=== PATIENT | female | born 1985 | race Caucasian/White ===

== ENCOUNTER → 2019-08-09 | Outpatient (CLI) | payer MEDICARE, OTHER ==
[~2019-08-09] MED LIST: CHOL10003 PO; CYAN100T2 PO; DIAZ2TAB3 PO; ETON1VAG VG; HYDR-3246 PO; HYDR200T72 PO; OXYC5CAP2 PO
[2019-08-09 15:21] LABS: BASOPHILS # (AUTO) 0.03 x10^3/uL (0-0.1); BASOPHILS % (AUTO) 1 % (0-1); EOSINOPHILS # (AUTO) 0.05 x10^3/uL (0-0.4); EOSINOPHILS % (AUTO) 1 % (1-7); LYMPHOCYTES # (AUTO) 1.48 x10^3/uL (1-3.4); LYMPHOCYTES % (AUTO) 24 % (22-44); MD NO; MEAN CORPUSCULAR HEMOGLOBIN 32.4 pg (27.0-34.8); MEAN CORPUSCULAR HGB CONC 34.2 g/dL (32.4-35.8); MEAN CORPUSCULAR VOLUME 94.6 fL (80-100); MEAN PLATELET VOLUME 9.3 fL (7.4-10.4); MONOCYTES # (AUTO) 0.53 x10^3/uL (0.2-0.8); MONOCYTES % (AUTO) 9 % (2-9); NEUTROPHILS % (AUTO) 66 % (42-75); PLATELET COUNT 235 x10^3/uL (130-400); RED BLOOD COUNT 4.45 x10^6/uL (3.82-5.3); RED CELL DISTRIBUTION WIDTH 11.6 % (9.6-15.2)
[2019-08-09 15:23] LABS: INTERNATIONAL NORMALIZED RATIO 0.96 (0.93-1.1); PROTHROMBIN TIME 10.2 Seconds (9.6-11.5)
[2019-08-09 15:25] LABS: ALANINE AMINOTRANSFERASE 31 U/L (12-78); ALBUMIN 3.9 g/dL (3.4-5.0); ANION GAP 5 mmol/L (5-15); CALCIUM 8.8 mg/dL (8.5-10.1); CHLORIDE 108 mmol/L (98-107); CREATININE 0.63 mg/dL (0.55-1.02)
[2019-08-09 15:28] LABS: ALKALINE PHOSPHATASE 65 U/L (45-117); BILIRUBIN,TOTAL 0.8 mg/dL (0.2-1.0); TOTAL PROTEIN 7.6 g/dL (6.4-8.2)
== END | disposition home or self-care (01) ==
LOC: STAR 13:58
PROVIDERS: ATTEND Orthopaedic Surgery Adult Reconstructive Orthopaedic Surgery
DX: Z01.818 Encounter for other preprocedural examination (principal); M16.11 Unilateral primary osteoarthritis, right hip; R94.31 Abnormal electrocardiogram [ECG] [EKG]; Q65.89 Other specified congenital deformities of hip
CPT/HCPCS: 36415; 80053; 85025; 85610; 85730; 87081; 93005

== ENCOUNTER 2019-08-15 05:58 | Observation (INO) | payer MEDICARE, OTHER ==
[~2019-08-15] VITALS: Ht 167.6 cm; Wt 85.0 kg
[2019-08-15] MEDS ORDERED: LACTATED RINGERS 1,000 ML IV SCH (06:29)
[2019-08-15] MEDS ORDERED: CHLORHEXIDINE 15 ML UDC MM ONE (06:30)
[2019-08-15] MEDS ORDERED: CEFAZOLIN 1,000 MG ONE ×2 (06:47→09:20)
[2019-08-15] MEDS ORDERED: VANCOMYCIN 1,000 MG ONE (06:48)
[2019-08-15] MEDS ORDERED: TRANEXAMIC ACID 100 MG/ML, 10ML ONE (06:48)
[2019-08-15 07:10] LABS: HCG UR SG 1.021 (1.003-1.030)
[2019-08-15] MEDS ORDERED: MIDAZOLAM 1 MG/ML, 2ML ONE (07:26)
[2019-08-15] MEDS ORDERED: GABAPENTIN 300 MG CAPSULE ONE (07:26)
[2019-08-15] MEDS ORDERED: ACETAMINOPHEN 500 MG TABLET ONE (07:26)
[2019-08-15] MEDS ORDERED: FENTANYL PF 250 MCG/5ML ONE ×3 (07:34→09:00)
[2019-08-15] MEDS ORDERED: PROPOFOL 10 MG/ML, 20ML ONE (09:20)
[2019-08-15] MEDS ORDERED: GLYCOPYRROLATE 0.2MG/1ML, 5ML ONE (09:20)
[2019-08-15] MEDS ORDERED: NEOSTIGMINE 1 MG/ML, 10ML ONE (09:20)
[2019-08-15] MEDS ORDERED: DEXAMETHASONE 4 MG/ML, 1ML ONE (09:20)
[2019-08-15] MEDS ORDERED: ONDANSETRON 2MG/ML, 2ML ONE (09:20)
[2019-08-15] MEDS ORDERED: SUCCINYLCHOLINE 20 MG/ML, 10ML ONE (09:20)
[2019-08-15] MEDS ORDERED: ROCURONIUM 10MG/ML,5ML ONE (09:20)
[2019-08-15] MEDS ORDERED: FENTANYL PF 100 MCG/2ML ONE ×2 (09:54→10:09)
[2019-08-15] MEDS ORDERED: OXYcodone 5 MG/5 ML ORAL.SOL UDC ONE (09:54)
[2019-08-15] MEDS: FENTANYL PF 100 MCG/2ML IV PRN ×4 (09:56→10:32)
[2019-08-15] MEDS ORDERED: TRANEXAMIC ACID 1,000 MG in SODIUM CHLORIDE 0.9% 100 ML IVPB ONE (10:00)
[2019-08-15] MEDS ORDERED: MEPERIDINE/PF 25MG/0.5ML IVPush PRN (10:00)
[2019-08-15] MEDS ORDERED: DIPHENHYDRAMINE 25 MG CAPSULE PO PRN (10:00)
[2019-08-15] MEDS ORDERED: LABETALOL 5MG/ML, 20ML IV PRN (10:00)
[2019-08-15] MEDS ORDERED: SENNA/DOCUSATE TABLET PO PRN (10:00)
[2019-08-15] MEDS ORDERED: ALBUTEROL SULFATE 2.5 MG/3 ML NPPB PRN (10:00)
[2019-08-15] MEDS ORDERED: PROMETHAZINE 25 MG/ML, 1ML IV PRN (10:00)
[2019-08-15] MEDS ORDERED: OXYcodone IR 5MG TABLET PO PRN (10:00)
[2019-08-15] MEDS ORDERED: ONDANSETRON 4 MG TABLET PO PRN (10:00)
[2019-08-15] MEDS ORDERED: OXYcodone 5 MG/5 ML ORAL.SOL UDC PO PRN (10:00)
[2019-08-15] MEDS ORDERED: hydrALAzine 20 MG/ML, 1ML IV PRN (10:00)
[2019-08-15] MEDS ORDERED: DIAZEPAM 5 MG/ML, 2ML IVPush PRN (10:00)
[2019-08-15] MEDS ORDERED: MEPERIDINE/PF 25MG/ML,1ML ONE (10:17)
[2019-08-15] MEDS ORDERED: HYDROmorphone 1 MG/ML, 1ML INJ ONE ×3 (10:36→11:44)
[2019-08-15] MEDS: HYDROmorphone 1 MG/ML, 1ML INJ IVPush PRN ×8 (10:40→21:27)
[2019-08-15] MEDS ORDERED: DIAZEPAM 5 MG/ML, 2ML ONE (10:57)
[2019-08-15 13:13] VITALS: BP 125/71
[2019-08-15] MEDS: PREGABALIN 75 MG CAPSULE PO SCH ×2 (13:19→19:59)
[2019-08-15] MEDS: ACETAMINOPHEN 500 MG TABLET PO SCH ×2 (13:19→18:32)
[2019-08-15] MEDS: OXYcodone IR 5MG TABLET PO PRN ×3 (14:23→22:59)
[2019-08-15] MEDS: CEFAZOLIN PMX 2GM/50ML 50 ML IVPB SCH (16:12)
[2019-08-15 19:40] VITALS: BP 109/80
[2019-08-15] MEDS ORDERED: DIAZEPAM 2 MG TABLET PO PRN (20:00)
[2019-08-15] MEDS: LACTATED RINGERS 1,000 ML IV SCH (21:00)
[2019-08-16 00:37] VITALS: BP 118/73
[2019-08-16] MEDS: ACETAMINOPHEN 500 MG TABLET PO SCH ×3 (01:39→08:38)
[2019-08-16] MEDS: CEFAZOLIN PMX 2GM/50ML 50 ML IVPB SCH (01:40)
[2019-08-16] MEDS: HYDROmorphone 1 MG/ML, 1ML INJ IVPush PRN (01:40)
[2019-08-16 03:54] VITALS: BP 118/72
[2019-08-16] MEDS: OXYcodone IR 5MG TABLET PO PRN ×3 (04:15→12:49)
[2019-08-16] MEDS ORDERED: ASPIRIN 81 MG TABLET EC PO SCH (06:00)
[2019-08-16] MEDS ORDERED: DEXAMETHASONE 4 MG/ML, 1ML IVPush ONE (06:00)
[2019-08-16] MEDS ORDERED: ASPI81TA45 PO (06:33)
[2019-08-16 07:37] VITALS: BP_SYST 127
[2019-08-16] MEDS: PREGABALIN 75 MG CAPSULE PO SCH (08:38)
[2019-08-16] MEDS ORDERED: CYANOCOBALOMIN 100MCG TABLET PO SCH (09:00)
[2019-08-16] MEDS ORDERED: CHOLECALCIFEROL 1,000 UNIT TABLET PO SCH (09:00)
[2019-08-16] MEDS ORDERED: HYDROXYCHLOROQUINE 200 MG TABLET PO SCH (09:00)
[2019-08-16] MEDS ORDERED: OXYC5CAP2 PO (09:10)
[2019-08-16] MEDS: LACTATED RINGERS 1,000 ML IV SCH (10:20)
== END 2019-08-16 13:55 | disposition home or self-care (01) ==
LOC: OUT 05:58 → ORIP 09:48 → 4NE 12:21 → DCLOUNGE 08-16 13:48
PROVIDERS: ADMIT Orthopaedic Surgery; ATTEND Orthopaedic Surgery Adult Reconstructive Orthopaedic Surgery
DX: Z03.818 Encounter for observation for suspected exposure to other biological agents ruled out (principal); M16.11 Unilateral primary osteoarthritis, right hip; M32.9 Systemic lupus erythematosus, unspecified; Z79.899 Other long term (current) drug therapy
CPT/HCPCS: 27130; 36415; 72170; 81025; 85018; 86850; 86900; 87635; 96365; 96366; 96375; 96376; 97110; 97161; C1713; C1776; G0378; J0690; J1100; J1170; J2175; J2405; J2704; J2710; J3010; J3360; J7120; J3370; J0330